=== PATIENT | female | born 2000 | race Caucasian/White ===

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

== ENCOUNTER 2018-03-01 20:20 | Emergency (ER) | payer BC ==
[~2018-03-01] VITALS: Ht 149.9 cm; Wt 104.5 kg
[~2018-03-01 20:20] MED LIST changes: +TENORMIN 2525 MG/TAB PO; +WELLBUTRIN SR150 M1 PO
[2018-03-01 20:25] VITALS: BP 139/80; TEMP 98
[2018-03-01] MEDS ORDERED: FLEXERIL 1010 MG/TAB PO (20:58)
[2018-03-01] MEDS ORDERED: MOTRIN 800800 MG/TAB PO (20:58)
[2018-03-01] MEDS ORDERED: NORCO 325 MG-51 TAB PO (20:58)
[2018-03-01 21:16] VITALS: PULSE 87
== END 2018-03-01 21:20 | disposition home or self-care (01) ==
LOC: COL.ER 20:20
DX: M43.6 Torticollis (principal); I10 Essential (primary) hypertension; F17.210 Nicotine dependence, cigarettes, uncomplicated; Z91.14 Patient's other noncompliance with medication regimen

== ENCOUNTER 2018-05-06 07:21 | Emergency (ER) | payer BC ==
[~2018-05-06] VITALS: Ht 149.9 cm; Wt 113.6 kg
[~2018-05-06 07:21] MED LIST changes: +FLEXERIL 1010 MG/TAB PO; +MOTRIN 800800 MG/TAB PO; +NORCO 325 MG-51 TAB PO
[2018-05-06 07:35] VITALS: TEMP 99.1
[2018-05-06] MEDS ORDERED: PHENERGAN W/CO120 M1 PO (09:18)
[2018-05-06] MEDS ORDERED: ZITHROMAX Z PA250 MG PO (09:18)
[2018-05-06 09:55] VITALS: BP 138/76; PULSE 115
== END 2018-05-06 09:56 | disposition home or self-care (01) ==
LOC: COL.ER 07:21
DX: J20.9 Acute bronchitis, unspecified (principal)

== ENCOUNTER 2018-06-09 23:24 | Emergency (ER) | payer BC ==
[~2018-06-09] VITALS: Ht 152.4 cm; Wt 116.4 kg
[~2018-06-09 23:24] MED LIST changes: +PHENERGAN W/CO120 M1 PO; +ZITHROMAX Z PA250 MG PO
[2018-06-09 23:35] VITALS: BP 142/95; TEMP 97.9
[2018-06-09] MEDS ORDERED: NORCO 325 MG-51 TAB PO (23:59)
[2018-06-09] MEDS ORDERED: AMOXICILLIN 8751 TAB PO (23:59)
[2018-06-10 01:01] VITALS: PULSE 80
== END 2018-06-10 01:06 | disposition home or self-care (01) ==
LOC: COL.ER 23:24
DX: O9A.211 Injury, poisoning and certain other consequences of external causes complicating pregnancy, first trimester (principal); S81.832A Puncture wound without foreign body, left lower leg, initial encounter; Z3A.12 12 weeks gestation of pregnancy; W54.0XXA Bitten by dog, initial encounter; Y92.009 Unspecified place in unspecified non-institutional (private) residence as the place of occurrence of the external cause

== ENCOUNTER 2018-06-11 03:55 | Emergency (ER) | payer BC ==
[~2018-06-11] VITALS: Ht 152.4 cm; Wt 116.4 kg
[~2018-06-11 03:55] MED LIST changes: +AMOXICILLIN 8751 TAB PO
[2018-06-11 04:03] VITALS: BP 144/95; TEMP 97.7
[2018-06-11 06:46] VITALS: PULSE 86
== END 2018-06-11 06:53 | disposition home or self-care (01) ==
LOC: COL.ER 03:55
DX: Z48.00 Encounter for change or removal of nonsurgical wound dressing (principal)

== ENCOUNTER 2021-02-09 17:58 | Emergency (ER) | payer MEDICAID ==
[~2021-02-09] VITALS: Ht 152.4 cm; Wt 140.9 kg
[2021-02-09 18:21] VITALS: TEMP 100.1
[2021-02-09 19:28] LABS: COLLECTION METHOD CLEAN CATCH
[2021-02-09 19:36] LABS: MUCOUS Present (NOT PRESENT); PH 5 (5-8); URINE APPEARANCE Cloudy (CLEAR/HAZY); URINE BACTERIA None Seen (NONE SEEN); URINE BILIRUBIN Negative (NEGATIVE); URINE BLOOD 3+ (NEGATIVE); URINE COLOR Yellow (YELLOW); URINE GLUCOSE Negative (NEGATIVE); URINE KETONE 1+ (NEGATIVE); URINE LEUKOCYTE ESTERASE 3+ (NEGATIVE); URINE NITRATE Negative (NEGATIVE); URINE PROTEIN(semi-quant) 1+ (NEGATIVE); URINE RBC >50 /hpf (0-2); URINE UROBILINOGEN >=4.0 mg/dL (NEGATIVE)
[2021-02-09 19:42] LABS: HEMATOCRIT 42.6 % (37.0-47.0); HEMOGLOBIN 13.8 g/dl (12.5-16.0); MEAN CELL VOLUME 85 fl (80.0-100.0); MEAN CORPUSCULAR HEMOGLOBIN 28 pg (27.0-31.0); MEAN CORPUSCULAR HGB CONC 32 g/dl (33.0-37.0); PLATELET COUNT 283 K/mm3 (130-400); RED BLOOD COUNT 5.01 M/mm3 (4.10-5.30); REDCELL DISTRIBUTION WIDTH-CV 14.4 % (11.5-14.5)
[2021-02-09 20:02] LABS: ALANINE AMINOTRANSFERASE 17 U/L (0-55); ALBUMIN 3.6 gm/dL (3.5-5.0); ALKALINE PHOSPHATASE 77 U/L (40-150); ANION GAP 10 mmol/L (7-16); AST,SGOT 14 U/L (5-34); BILIRUBIN,TOTAL 1.2 mg/dL (0.2-1.2); BLOOD UREA NITROGEN 8 mg/dL (7-19); C-REACTIVE PROTEIN 14.22 mg/dL (0.00-0.50); CALCIUM 8.7 mg/dL (8.4-10.2); CARBON DIOXIDE 23 mmol/L (22-29); CHLORIDE 102 mmol/L (98-107); CREATININE, serum 0.77 mg/dL (0.57-1.11); GLUCOSE 94 mg/dL (70-99); POTASSIUM 3.6 mmol/L (3.5-4.5); SODIUM 135 mmol/L (136-145); TOTAL PROTEIN 7.5 gm/dL (6.2-8.1)
[2021-02-09 20:10] LABS: BAND 5 % (0-10); LIPASE < 4 U/L (8-78); LYMPHOCYTE 9 % (20.0-51.0); NEUTROPHILS 83 % (42.0-75.2); PLATELET ESTIMATE NORMAL (NORMAL)
[2021-02-09] MEDS ORDERED: NORCO 325 MG-51 TAB PO (22:48)
[2021-02-09] MEDS ORDERED: ZOFRAN ODT4 MG PO (22:48)
[2021-02-09] MEDS ORDERED: CEFTIN 250250 MG/TAB PO (23:01)
[2021-02-09 23:13] VITALS: BP 136/80; PULSE 97
== END 2021-02-09 23:13 | disposition home or self-care (01) ==
LOC: COL.ER 17:58
PROVIDERS: Nurse Practitioner
DX: N39.0 Urinary tract infection, site not specified (principal); F17.200 Nicotine dependence, unspecified, uncomplicated; Z32.02 Encounter for pregnancy test, result negative
CPT/HCPCS: J0696; J1170; J1885; J2405; J7030; Q9967

== ENCOUNTER 2021-02-11 00:09 | Emergency (ER) | payer MEDICAID ==
[~2021-02-11] VITALS: Ht 152.4 cm; Wt 140.9 kg
[~2021-02-11 00:09] MED LIST changes: +CEFTIN 250250 MG/TAB PO
[2021-02-11 00:40] VITALS: TEMP 99.6
[2021-02-11 01:38] LABS: BASO % 0.2 % (0.0-2.0); EOS # 0.1 K/mm3 (0.0-0.7); EOS % 0.8 % (0.0-4.0); GRAN # 9.7 K/mm3 (1.4-6.5); GRAN % 74.5 % (42.2-75.2); HEMATOCRIT 39.6 % (37.0-47.0); HEMOGLOBIN 12.8 g/dl (12.5-16.0); LYMPH # 2.3 K/mm3 (1.2-3.4); LYMPH % 17.4 % (20.0-51.0); MEAN CELL VOLUME 83 fl (80.0-100.0); MEAN CORPUSCULAR HEMOGLOBIN 27 pg (27-31); MEAN CORPUSCULAR HGB CONC 32 g/dl (33.0-37.0); MONO # 0.9 K/mm3 (0.1-0.6); MONO % 6.6 % (1.7-9.3); PLATELET COUNT 260 K/mm3 (130-400); RED BLOOD COUNT 4.75 M/mm3 (4.10-5.30); REDCELL DISTRIBUTION WIDTH-CV 14.2 % (11.5-14.5)
[2021-02-11 01:57] LABS: ALANINE AMINOTRANSFERASE 17 U/L (0-55); ALBUMIN 3.3 gm/dL (3.5-5.0); ALKALINE PHOSPHATASE 69 U/L (40-150); ANION GAP 11 mmol/L (7-16); AST,SGOT 16 U/L (5-34); BILIRUBIN,TOTAL 0.3 mg/dL (0.2-1.2); BLOOD UREA NITROGEN 12 mg/dL (7-19); C-REACTIVE PROTEIN 28.88 mg/dL (0.00-0.50); CALCIUM 9.1 mg/dL (8.4-10.2); CARBON DIOXIDE 24 mmol/L (22-29); CHLORIDE 105 mmol/L (98-107); CREATININE, serum 0.72 mg/dL (0.57-1.11); GLUCOSE 82 mg/dL (70-99); LIPASE < 10 U/L (8-78); POTASSIUM 3.7 mmol/L (3.5-4.5); SODIUM 140 mmol/L (136-145); TOTAL PROTEIN 7.5 gm/dL (6.2-8.1)
[2021-02-11 03:19] VITALS: BP 137/84; PULSE 97
== END 2021-02-11 03:22 | disposition home or self-care (01) ==
LOC: COL.ER 00:09
PROVIDERS: Nurse Practitioner
DX: R10.84 Generalized abdominal pain (principal); F17.210 Nicotine dependence, cigarettes, uncomplicated
CPT/HCPCS: J1170; J7030

== ENCOUNTER → 2021-09-01 | Outpatient (CLI) | payer MEDICAID | LOC: COL.VAS 13:31 | DX: M79.604 Pain in right leg (principal) ==

== ENCOUNTER 2021-10-12 21:08 | Emergency (ER) | payer MEDICAID ==
[~2021-10-12] VITALS: Ht 152.4 cm; Wt 145.5 kg
[2021-10-12 21:10] VITALS: TEMP 97
[2021-10-12 22:53] LABS: HEMATOCRIT 43.3 % (37.0-47.0); HEMOGLOBIN 14.1 g/dl (12.5-16.0); MEAN CELL VOLUME 87 fl (80.0-100.0); MEAN CORPUSCULAR HEMOGLOBIN 28 pg (27-31); MEAN CORPUSCULAR HGB CONC 33 g/dl (33.0-37.0); MEAN PLATELET VOLUME 10.3 fl (7.4-10.4); PLATELET COUNT 280 K/mm3 (130-400); REDCELL DISTRIBUTION WIDTH-CV 13.9 % (11.5-14.5)
[2021-10-12 23:10] LABS: CALCIUM 9.3 mg/dL (8.4-10.2); CREATININE, serum 0.8 mg/dL (0.57-1.11); POTASSIUM 4.1 mmol/L (3.5-4.5)
[2021-10-13 00:43] VITALS: BP 131/81; PULSE 85
== END 2021-10-13 01:10 | disposition home or self-care (01) ==
LOC: COL.ER 21:08
PROVIDERS: Emergency Medicine
DX: G93.2 Benign intracranial hypertension (principal); F17.210 Nicotine dependence, cigarettes, uncomplicated; Z28.310 Unvaccinated for COVID-19
CPT/HCPCS: J1790; J1885; J3010; J7030